=== PATIENT | female | born 1980 | race Caucasian/White ===

== ENCOUNTER 2017-07-29 20:26 | Emergency (ER) | payer OTHER ==
[~2017-07-29 20:26] MED LIST: ADDERALL30 MG PO; ALPRAZOLAM0.25 M2 PO; AMOX TR K CLV; AMOXICILLIN875 MG PO; ANAPROX275 MG; BUTALB-APAP-CA1 EACH PO; CLONIDINE HCL0.1 MG PO; DIVALPROEX SOD250 M1 PO; EFFEXOR XR150 MG PO; ESCITALOPRAM OX10 MG; KEFLEX500 MG PO; LYRICA100 MG PO; METHOCARBAMOL750 MG PO; METRONIDAZOLE500 MG PO; MOTRIN800 MG PO; NAPROSYN500 MG PO; NYSTATIN15 GM; PHENERGAN DM SYR1 ML; PREDNISONE20 MG; ROXICODONE5 MG PO; TRAMADOL HCL50 MG PO; TYLENOL REGULA325 MG PO; VENLAFAXINE HC150 M1 PO; VICODIN 5-3001 EACH PO; ZOFRAN4 MG PO
[2017-07-29 20:50] LABS: EOSINOPHIL (%) 1.1 % (0-5); EOSINOPHIL COUNT 0.1 K/uL (0-0.3); HEMATOCRIT 44.5 % (36.0-46.0); IMMATURE GRANULOCYTE (%) 0.4 % (0.0-0.7); INSTRUMENT ABS NEUTROPHIL CT 4.5 K/uL; LYMPHOCYTE COUNT 3.1 K/uL (1.0-2.8); MCH 30.5 PG (29.0-34.0); MCHC 33.3 G/DL (30.0-36.0); MCV 91.6 FL (83-99); MEAN PLAT.VOLUME 9.3 uM^3 (9.5-12.4); MONOCYTE (%) 6.6 % (3-12); MONOCYTE COUNT 0.6 K/uL (0-0.8); NEUTROPHIL (%) 53.8 % (45-76); NEUTROPHIL COUNT 4.5 K/uL (1.8-6.4); PLATELET COUNT 300 K/uL (156-360); RBC DIS.WIDTH-CV 12.6 % (11.8-14.6); RBC DIS.WIDTH-SD 42.6 % (39-53); RED BLOOD COUNT 4.86 M/uL (3.80-5.20); WHITE BLOOD COUNT 8.3 K/uL (4.1-10.2)
[2017-07-29 20:58] LABS: AMYLASE 27 IU/L (1-118); CHLORIDE 106 mEq/L (99-109); POTASSIUM 3.6 mEq/L (3.7-5.4); SODIUM 141 mEq/L (136-147)
[2017-07-29 21:00] LABS: GLUCOSE 98 mg/dL (70-99)
[2017-07-29 21:01] LABS: ANION GAP 8 MEQ/L (2-14)
[2017-07-29 21:03] LABS: SERUM ETHYL ALCOHOL < 10 mg/dL
[2017-07-29 21:04] LABS: GFR ESTIMATE (CALCULATED) > 59 mL/min/; UREA NITROGEN (BUN) 12 mg/dL (9-23)
[2017-07-29 21:07] LABS: LIPASE 37 U/L (1.0-51.0)
[2017-07-29 21:13] LABS: QUANTITATIVE HCG < 4.0 MIU/ML
[2017-07-29] MEDS ORDERED: MOTRIN800 MG PO (22:28)
[2017-07-29] MEDS ORDERED: FLEXERIL10 MG PO (22:28)
== END 2017-07-29 23:26 | disposition home or self-care (01) ==
LOC: TRA 20:26
PROVIDERS: Emergency Medicine
DX: S06.0X0A Concussion without loss of consciousness, initial encounter (principal); S80.12XA Contusion of left lower leg, initial encounter; S80.11XA Contusion of right lower leg, initial encounter; S30.1XXA Contusion of abdominal wall, initial encounter; S00.03XA Contusion of scalp, initial encounter; M51.36 Other intervertebral disc degeneration, lumbar region; V09.29XA Pedestrian injured in traffic accident involving other motor vehicles, initial encounter
CPT/HCPCS: 70450; 71260; 72125; 72129; 72132; 74177; 80048; 81003; 82150; 83690; 84702; 85025; 86850; 86900; 86901; 99281; 99285; G0480; J2270; J2405; J3010

== ENCOUNTER 2017-11-23 14:51 | Emergency (ER) | payer OTHER ==
[~2017-11-23] VITALS: Ht 162.6 cm; Wt 106.5 kg
[~2017-11-23 14:51] MED LIST changes: +FLEXERIL10 MG PO
[2017-11-23 15:17] LABS: HEMATOCRIT 47.8 % (36.0-46.0); MCH 30.3 PG (29.0-34.0); MCHC 33.5 G/DL (30.0-36.0); MCV 90.5 FL (83-99); PLATELET COUNT 378 K/uL (156-360); RBC DIS.WIDTH-CV 13.4 % (11.8-14.6); RBC DIS.WIDTH-SD 44.4 % (39-53); RED BLOOD COUNT 5.28 M/uL (3.80-5.20)
[2017-11-23 15:25] LABS: CHLORIDE 105 mEq/L (99-109); POTASSIUM 3.8 mEq/L (3.7-5.4); SODIUM 141 mEq/L (136-147)
[2017-11-23 15:27] LABS: GLUCOSE 103 mg/dL (70-99)
[2017-11-23 15:31] LABS: CREATININE 0.8 mg/dL (0.6-1.3); GFR ESTIMATE (CALCULATED) > 59 mL/min/; UREA NITROGEN (BUN) 11 mg/dL (9-23)
[2017-11-23 15:38] LABS: APPEARANCE CLOUDY ((CLEAR)); BILIRUBIN NEGATIVE; BLOOD SMALL; COLOR YELLOW ((YELLOW)); GLUCOSE (STRIP) NEGATIVE; KETONES NEGATIVE; LEUKOCYTES LARGE; NITRITE POSITIVE; PROTEIN (STRIP) 30; SPECIFIC GRAVITY 1.009 (1.000-1.030); UROBILINOGEN 0.2 MG/DL (0.2-1.0)
[2017-11-23 16:11] LABS: BACTERIA 1+ /HPF; EPITHELIAL CELLS 2+ /HPF; MUCUS NONE SEEN /LPF; RED BLOOD CELLS RARE /HPF (0-5); UCUL ADDED? YES; WHITE BLOOD CELLS 30-40 /HPF (0-5)
[2017-11-23 16:31] LABS: ALBUMIN 4.2 g/dL (3.2-4.8)
[2017-11-23 16:34] LABS: TOTAL PROTEIN 7.3 g/dL (6.4-8.3)
[2017-11-23 16:36] LABS: TOTAL BILIRUBIN 0.7 mg/dL (0.0-1.0)
[2017-11-23 16:37] LABS: ALKALINE PHOSPHATASE 91 IU/L (3-129)
[2017-11-23 16:39] LABS: AST (GOT) 18 IU/L (2-34)
[2017-11-23 16:40] LABS: ALT (GPT) 20 IU/L (3-49); DIRECT BILIRUBIN 0.3 mg/dL (0.0-0.3)
[2017-11-23 16:41] LABS: LIPASE 11 U/L (1.0-51.0)
[2017-11-23 16:47] LABS: QUANTITATIVE HCG < 4.0 MIU/ML
[2017-11-23] MEDS ORDERED: CIPRO500 MG PO (18:01)
[2017-11-23 18:21] VITALS: BP 123/83
== END 2017-11-23 18:21 | disposition home or self-care (01) ==
LOC: EME 14:51
DX: N39.0 Urinary tract infection, site not specified (principal); B96.20 Unspecified Escherichia coli [E. coli] as the cause of diseases classified elsewhere; K52.9 Noninfective gastroenteritis and colitis, unspecified; F90.9 Attention-deficit hyperactivity disorder, unspecified type; F39 Unspecified mood [affective] disorder; F17.200 Nicotine dependence, unspecified, uncomplicated; Z98.890 Other specified postprocedural states; Z90.49 Acquired absence of other specified parts of digestive tract
CPT/HCPCS: 74177; 80048; 80076; 81003; 83690; 84702; 85027; 87077; 87086; 87186; 99281; 99284; J2765; J7030